=== PATIENT | male | born 1970 | race Caucasian/White ===

== ENCOUNTER 2022-12-17 11:44 | Outpatient (CLI) | payer OTHER ==
--- NOTE | 2022-12-17 19:39 | Ultrasound Report ---
PROCEDURE: Testicle INDICATIONS: TESTICULAR TENDERNESS TECHNIQUE: Real-time scanning was performed of the scrotum and testicles, with image documentation. Color and p ulse Doppler interrogation was performed of both testicles. COMPARISON: None. FINDINGS: Right: Testicle is normal in size at 4.2 x 2.7 x 3.2 cm, and homogenous in echotexture. Epididymis is normal in overall size and morphology. No hydrocele or varicoceles. Overlying scrotal skin is no rmal in thickness. Left: Testicle is normal in size at 3.5 x 2.5 x 3.0 cm, and homogeneous in echotexture. Epididymal h ead cysts are noted the largest measuring 1.1 cm. No hydrocele or varicoceles. Overlying scrotal ski n is normal in thickness. Doppler: Color and pulse Doppler demonstrate normal and symmetric arterial flow in both testicles. IMPRESSION: Multiple left epididymal head cysts. Reviewed by: Blanca Padilla MD on 12/17/2022 7:38 PM PST Approved by: Blanca Padilla MD on 12/17/2022 7:38 PM PST Station ID: [id number]
== END 2022-12-17 11:45 | disposition home or self-care (01) ==
LOC: DI 11:44
PROVIDERS: ATTEND Registered Nurse
DX: N50.3 Cyst of epididymis (principal)

== ENCOUNTER 2024-03-09 17:08 | Outpatient (CLI) | payer OTHER ==
[2024-03-09 17:40] LABS: CREATININE 1.2 mg/dL (0.6-1.3)
[2024-03-09] MEDS ORDERED: iohexoL-300 100 ML VIAL ONE ×2 (18:00)
[2024-03-09] MEDS: iohexoL-300 100 ML VIAL IVP ONE (18:27)
--- NOTE | 2024-03-09 23:54 | CT Report ---
PROCEDURE: CT neck with contrast INDICATIONS: HYPERACTIVE GAG REFLEX TECHNIQUE: Helical axial CT of the neck was obtained after an intravenous contrast injection, and re formatted in multiple planes. Radiation dose reduction was achieved using automated exposure control or adjustment of mA and/or kV according to patient size. COMPARISON: None. FINDINGS: Skull Base: The visualized intracranial contents, skull, and orbits are unremarkable. Visualized par anasal sinuses are clear. Pharynx and Larynx: The nasopharyngeal airway is patent and midline. Parapharyngeal soft tissues in cluding palantine tonsils and base of the tongue are normal. Retropharyngeal space unremarkable. No rmal appearance of the false and true vocal cords. Muscles and Fascial Planes: Fascial planes are well maintained. No abscess or mass lesion. Lymph Nodes: Bilateral level 2A adenopathy measures up to 1.1 x 1.4 cm on the left. Preserved fatty mikie noted. Vasculature: Unremarkable. Submandibular and Parotid Glands: Normal in size and attenuation. Thyroid: Unremarkable. No enlarged or calcified nodules. Bones: No acute fracture. No osteolytic or blastic lesion is evident. Normal bone mineralization. Lung Apices: The visualized lung apices are clear. IMPRESSION: Bilateral level 2A probably reactive adenopathy. Consider clinical follow-up Reviewed by: Rudolph Church MD on 03/09/2024 10:53 PM MARYBETH Approved by: Rudolph Church MD on 03/09/2024 10:53 PM AKSHAWNEE Station ID: [id number]
== END 2024-03-09 17:09 | disposition home or self-care (01) ==
LOC: DI 17:08
PROVIDERS: ATTEND Registered Nurse
DX: R59.0 Localized enlarged lymph nodes (principal); J39.2 Other diseases of pharynx; R06.83 Snoring; Z12.5 Encounter for screening for malignant neoplasm of prostate; R53.83 Other fatigue; E29.1 Testicular hypofunction; Z13.228 Encounter for screening for other metabolic disorders; Z13.220 Encounter for screening for lipoid disorders; Z13.29 Encounter for screening for other suspected endocrine disorder; Z13.0 Encounter for screening for diseases of the blood and blood-forming organs and certain disorders involving the immune mechanism
CPT/HCPCS: 36415; 70491; 82565; Q9967; 80053; 80061; 83721; 84153; 84403; 84443; 85025

== ENCOUNTER 2024-03-14 08:38 | Outpatient (CLI) | payer OTHER ==
[2024-03-14 14:50] LABS: BASOPHILS % (AUTO) 0.5 %; EOSINOPHILS # (AUTO) 0.3 10^3/uL (0.0-0.7); EOSINOPHILS % (AUTO) 4.9 %; HCT - HEMATOCRIT 43.8 % (42.0-52.0); HGB - HEMOGLOBIN 14.2 g/dL (14.0-18.0); LYMPHOCYTES # (AUTO) 2.2 10^3/uL (1.5-3.5); LYMPHOCYTES % (AUTO) 37.8 %; MEAN CORPUSCULAR HEMOGLOBIN 30.3 pg (27.0-31.0); MEAN CORPUSCULAR HGB CONC 32.4 g/dL (32.0-36.0); MEAN CORPUSCULAR VOLUME 93.6 fL (80.0-94.0); MONOCYTES # (AUTO) 0.6 10^3/uL (0.0-1.0); NEUTROPHILS # (AUTO) 2.7 10^3/uL (1.5-6.6); NEUTROPHILS % (AUTO) 46.4 %; PLT - PLATELET COUNT 259 10^3/uL (130-450); RED BLOOD COUNT 4.68 10^6/uL (4.70-6.10); RED CELL DISTRIBUTION WIDTH 12.8 % (12.0-15.0); WHITE BLOOD COUNT 5.7 x10^3/uL (4.8-10.8)
[2024-03-14 15:37] LABS: ALBUMIN 3.9 g/dL (3.2-5.5); ALBUMIN/GLOBULIN RATIO 1.7 (1.0-2.2); ALKALINE PHOSPHATASE 39 IU/L (42-121); ALT ALANINE AMINOTRANSFERASE 17 IU/L (10-60); AST ASPARTATE AMINOTRANSFERASE 16 IU/L (10-42); BILIRUBIN,TOTAL 0.6 mg/dL (0.2-1.0); BUN - BLOOD UREA NITROGEN 17 mg/dL (6-20); CALCIUM 9.4 mg/dL (8.5-10.3); CARBON DIOXIDE - CO2 29 mmol/L (21-32); CHLORIDE 104 mmol/L (101-111); CHOL/HDL RATIO 6.2 (<5.0); CHOLESTEROL 234 mg/dL; CREATININE 1.1 mg/dL (0.6-1.3); GFR - MDRD 71 (>89); GLUCOSE 88 mg/dL (74-104); HDL CHOLESTEROL 38 mg/dL; LDL CHOLESTEROL,CALCULATED 173 mg/dL; LDL/HDL RATIO 4.6 (<3.6); POTASSIUM 4.2 mmol/L (3.5-4.5); SODIUM 137 mmol/L (135-145); TOTAL PROTEIN 6.2 g/dL (6.4-8.9); TRIGLYCERIDES 113 mg/dL (48-352); VLDL CHOLESTEROL 23 mg/dL
[2024-03-14 15:44] LABS: THYROID STIMULATING HORMONE 4.38 uIU/mL (0.34-5.60)
== END 2024-03-14 08:39 | disposition home or self-care (01) ==
LOC: LAB.S 08:38
PROVIDERS: ATTEND Registered Nurse
DX: R53.83 Other fatigue (principal); Z13.228 Encounter for screening for other metabolic disorders; Z13.9 Encounter for screening, unspecified; Z12.5 Encounter for screening for malignant neoplasm of prostate; E29.1 Testicular hypofunction; N50.9 Disorder of male genital organs, unspecified; Z13.0 Encounter for screening for diseases of the blood and blood-forming organs and certain disorders involving the immune mechanism; Z13.29 Encounter for screening for other suspected endocrine disorder
CPT/HCPCS: 36415; 80053; 80061; 83721; 84153; 84403; 84443; 85025

== ENCOUNTER 2024-05-25 07:04 | Outpatient (CLI) | payer OTHER | END 2024-05-25 07:05 | disposition home or self-care (01) | LOC: LAB 07:04 | PROVIDERS: ATTEND Registered Nurse | DX: E29.1 Testicular hypofunction (principal); R53.83 Other fatigue; N50.9 Disorder of male genital organs, unspecified | CPT/HCPCS: 36415; 84403 ==